=== PATIENT | female | born 1965 | race Two or more races ===

== ENCOUNTER 2025-04-29 14:19 | Emergency (ER) | payer SELFPAY ==
[~2025-04-29] VITALS: Ht 157.5 cm; Wt 63.6 kg
[2025-04-29] MEDS ORDERED: ONDANSETRON HCL 4 MG/2 ML VIAL IV ONE (14:30)
[2025-04-29] MEDS ORDERED: SODIUM CHLORIDE 0.9% 500 ML IVB ONE (14:30)
[2025-04-29] MEDS ORDERED: MORPHINE SULFATE 4 MG/ML SYR/VIAL IV ONE (14:30)
[2025-04-29 14:35] VITALS: BP 122/75; PULSE 115; RESP 22; TEMP 99; O2SAT 98
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
[2025-04-29 15:44] LABS: Hematocrit 36.2 % (36.0-46.0); Hemoglobin 12.3 g/dL (12.2-16.2); Mean Corpuscular Hemoglobin 29.9 pg (28.0-32.0); Mean Corpuscular Volume 87.9 fL (80.0-100.0); Nucleated Red Blood Cells % 0.1 %
[2025-04-29 15:45] LABS: Potassium 3.6 mmol/L (3.5-5.1); Sodium 140 mmol/L (136-145)
[2025-04-29 15:46] LABS: Anion Gap 9 (5-15); Calcium 9.4 mg/dL (8.7-10.4); Carbon Dioxide 24 mmol/L (20-31)
[2025-04-29 15:51] LABS: BUN/Creatinine Ratio 17.6 (10.0-20.0); Blood Urea Nitrogen 13 mg/dL (9-23)
[2025-04-29 15:53] LABS: Chloride 107 mmol/L (98-107); Glucose 107 mg/dL (74-106)
== END 2025-04-29 17:04 | disposition left against medical advice (07) ==
LOC: ER 14:19 → EDBD 14:19 → ER 17:04
DX: S30.1XXA Contusion of abdominal wall, initial encounter (principal); M19.90 Unspecified osteoarthritis, unspecified site; V43.52XA Car driver injured in collision with other type car in traffic accident, initial encounter; Y93.89 Activity, other specified; Y92.488 Other paved roadways as the place of occurrence of the external cause; Y99.8 Other external cause status
CPT/HCPCS: 36415; 80048; 85025